=== PATIENT | female | born 2000 | race Caucasian/White ===

== ENCOUNTER 2022-05-31 09:42 | Outpatient (CLI) | payer OTHER, SELFPAY ==
--- NOTE | ~2022-05-31 | XR_ITS ---
EXAMINATION: XR fl inj shoulder RT - MR/CT DATE: 05/31/2022 11:43 INDICATION: Right shoulder pain TECHNIQUE: A time-out was performed to verify the patient's name, date of , and procedure to b e performed. The procedure including the risks, benefits, and alternatives was discussed with the pat ient. Risks discussed included bleeding and infection. The patient understood the risks and agreed to proceed. The skin overlying the rotator cuff interval of the right glenohumeral joint was prepped a nd draped in usual sterile fashion. Anesthetic was administered with 1% lidocaine subcutaneously. A 22 G needle was advanced under fluoroscopic guidance into the joint. Injection of 1 mL of Omnipaque 240 confirmed intra-articular position of the needle. Subsequently, injectate consisting of 12 mL o f 4:1:1 mixture of sterile saline:Omnipaque 350:1% lidocaine mixed 200:1 with 529 mg/mL Multihance ga dolinium contrast was injected with intra-articular administration confirmed with intermittent fluoro scopy. The needle was removed and the entry site was cleaned and dressed. There were no immediate co mplications. Fluoroscopy exposure time was 0.3 minutes. The total number of images was 67. FINDINGS: Real-time fluoroscopy demonstrates the needle in the right glenohumeral joint. Patient's pa in prior to procedure:10/14. Patient's pain following the procedure: 10/14. IMPRESSION: 1. Successful right glenohumeral joint injection of dilute gadolinium contrast mixture for supplement MRI arthrogram which will be dictated separately. Reviewed, dictated and finalized at location A.
--- NOTE | ~2022-05-31 | MR_ITS ---
EXAMINATION: MR shoulder RT w con DATE: 05/31/2022 12:01 INDICATION: Right shoulder pain TECHNIQUE: Magnetic resonance imaging (MRI) of the right shoulder was performed following intra-giovanni cular gadolinium contrast injection and without intravenous contrast. Details of the glenohumeral stephanie nt injection have been dictated separately. Sequences included axial T2-weighted FS FSE, axial T1-we ighted FS FSE, coronal oblique T1-weighted FS FSE, coronal oblique T2-weighted FSE, sagittal T2-weigh roman FS FSE, sagittal T1-weighted FSE, and ABER (abduction external rotation) T1-weighted FS FSE. COMPARISON: None. FINDINGS: Coracoacromial arch: The acromion undersurface is curved in morphology (type II). The coracoacromial ligament is normal. A cromioclavicular joint is normal. Rotator cuff: Mild supraspinatus tendinopathy without tear. The infraspinatus, teres minor and subscapularis tendon s are normal. Normal rotator cuff muscle bulk and signal. Biceps tendon, glenoid labrum and glenohumeral cartilage: Long head of the biceps tendon is intact. Glenoid labrum is normal. Glenohumeral cartilage is normal. Bones and other: Normal marrow signal with no edema, fracture or abnormal marrow replacing process. Small amount of f luid without contrast enhancement in the subacromial/subdeltoid bursa consistent with mild bursitis. IMPRESSION: 1. Mild supraspinatus tendinopathy without tear. 2. Mild subacromial/subdeltoid bursitis. Reviewed, dictated and finalized at location A.
== END 2022-05-31 09:43 | disposition home or self-care (01) ==
PROVIDERS: PCP Family Medicine; Visit Provider Orthopaedic Surgery
DX: M75.51 Bursitis of right shoulder (principal)
CPT/HCPCS: 23350; 73222; 77002; A9577; Q9967

== ENCOUNTER 2025-05-13 14:00 | Outpatient (RCR) | payer OTHER, SELFPAY ==
--- NOTE | 2025-02-28 12:53 | OPREHPOC ---
Outpatient Therapy Plan of Care This is a Multidisciplinary Plan of Care that may contain components documented by all disciplines (PT, OT, and ST.) PT Problem 1 PT Problem #1 Knowledge Deficit PT Goal 1 Goal / Goal Update [place] with HEP Target Visit 4 PT Problem 2 PT Problem #2 Impaired Range of Motion PT Goal 1 Goal / Goal Update 1. Improve R ankle dorsiflexion ROM to 15 degrees to improve terminal stance of gait Target Visit 8 PT Goal 2 Goal / Goal Update 1. Improve mandibular opening to 50 mm to improve speech and food consumption 2. Improve mandibular lateral glide to 20 mm to improve functional bicondylar jaw motion for chewing 3. Improve cervical rotation ROM to 60 degrees amanda 4. Improve cervical extension to 40 degrees pain free Target Visit 8 PT Problem 3 PT Problem #3 Impaired Strength PT Goal 1 Goal / Goal Update 1. Improve gross right ankle strength to 5/5 to improve stability for balance and functional activity Target Visit 8
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
--- NOTE | 2025-03-19 10:29 | PCSTNOTE ---
Patient did not show up for scheduled appointment this date.
--- NOTE | 2025-03-26 10:35 | OPREHPOC ---
Outpatient Therapy Plan of Care This is a Multidisciplinary Plan of Care that may contain components documented by all disciplines (PT, OT, and ST.) PT Problem 1 PT Problem #1 Knowledge Deficit PT Goal 1 Goal / Goal Update [place] with HEP Target Visit 4 PT Problem 2 PT Problem #2 Impaired Range of Motion PT Goal 1 Goal / Goal Update 1. Improve R ankle dorsiflexion ROM to 15 degrees to improve terminal stance of gait Target Visit 8 PT Goal 2 Goal / Goal Update 1. Improve mandibular opening to 50 mm to improve speech and food consumption 2. Improve mandibular lateral glide to 20 mm to improve functional bicondylar jaw motion for chewing 3. Improve cervical rotation ROM to 60 degrees amadna 4. Improve cervical extension to 40 degrees pain free Target Visit 8 PT Problem 3 PT Problem #3 Impaired Strength PT Goal 1 Goal / Goal Update 1. Improve gross right ankle strength to 5/5 to improve stability for balance and functional activity Target Visit [address] Problem #[address] Goal 1 Goal / Goal Update The patient will participate in home programming to improve carry over/generalization of skills to the home environment. Target Visit [address] Problem #[address] Goal 1 Goal / Goal Update Intelligibility: 1. The patient will complete oral motor ROM exercises for lingual/labial ROM 85% minimal cues. 2. The patient will produced fricatives in single word/phrases with 85% minimal cues 3. The patient will produce sentences 90% intelligible without cues 4. The patient will produce intelligible speech in conversation exchanges 5-10 with 905 intelligibility no cues. 5. The patient will complete a HEP with 905 compliance. Target Visit 10
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
--- NOTE | 2025-04-01 09:22 | OPREHPOC ---
Outpatient Therapy Plan of Care This is a Multidisciplinary Plan of Care that may contain components documented by all disciplines (PT, OT, and ST.) PT Problem 1 PT Problem #1 Knowledge Deficit PT Goal 1 Goal / Goal Update [place] with HEP Target Visit 4 Progress Met PT Problem 2 PT Problem #2 Impaired Range of Motion PT Goal 1 Goal / Goal Update 1. Improve R ankle dorsiflexion ROM to 15 degrees to improve terminal stance of gait Target Visit 8 Progress Met PT Goal 2 Goal / Goal Update 1. Improve mandibular opening to 50 mm to improve speech and food consumption 2. Improve mandibular lateral glide to 20 mm to improve functional bicondylar jaw motion for chewing 3. Improve cervical rotation ROM to 60 degrees amanda 4. Improve cervical extension to 40 degrees pain free 04/01/25: Met cervical ROM goals. Still lacking TMJ mobility goals Target Visit 16 Progress Partially Met PT Problem 3 PT Problem #3 Impaired Strength PT Goal 1 Goal / Goal Update 1. Improve gross right ankle strength to 5/5 to improve stability for balance and functional activity 04/01/25: Gastroc weakness still noted Target Visit [address] Problem 1 ST Problem #[address] Goal 1 Goal / Goal Update The patient will participate in home programming to improve carry over/generalization of skills to the home environment. Target Visit [address] Problem #[address] Goal 1 Goal / Goal Update Intelligibility: 1. The patient will complete oral motor ROM exercises for lingual/labial ROM 85% minimal cues. 2. The patient will produced fricatives in single word/phrases with 85% minimal cues 3. The patient will produce sentences 90% intelligible without cues 4. The patient will produce intelligible speech in conversation exchanges 5-10 with 905 intelligibility no cues. 5. The patient will complete a HEP with 905 compliance. Target Visit 10
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
--- NOTE | 2025-04-29 15:02 | OPREHPOC ---
Outpatient Therapy Plan of Care This is a Multidisciplinary Plan of Care that may contain components documented by all disciplines (PT, OT, and ST.) PT Problem 1 PT Problem #1 Knowledge Deficit PT Goal 1 Goal / Goal Update [place] with HEP Target Visit 4 Progress Met PT Problem 2 PT Problem #2 Impaired Range of Motion PT Goal 1 Goal / Goal Update 1. Improve R ankle dorsiflexion ROM to 15 degrees to improve terminal stance of gait Target Visit 8 Progress Met PT Goal 2 Goal / Goal Update 1. Improve mandibular opening to 50 mm to improve speech and food consumption 2. Improve mandibular lateral glide to 20 mm to improve functional bicondylar jaw motion for chewing 3. Improve cervical rotation ROM to 60 degrees amanda 4. Improve cervical extension to 40 degrees pain free 04/29/25: Met cervical ROM goals. Still lacking TMJ mobility goals Target Visit 24 Progress Partially Met PT Problem 3 PT Problem #3 Impaired Strength PT Goal 1 Goal / Goal Update 1. Improve gross right ankle strength to 5/5 to improve stability for balance and functional activity 04/29/25: Gastroc weakness still noted. Significantly improved Target Visit 24 Progress Partially Met PT Goal 2 Goal / Goal Update Improve amanda hip strength to 4+/5 to improve pelvic stability and LE control in dynamic activity Target Visit [address] Problem #[address] Goal 1 Goal / Goal Update The patient will participate in home programming to improve carry over/generalization of skills to the home environment. 04/21 Update: Patietn given HEP utilizing outside treatment. Target Visit [address] Problem 2 ST Problem #[address] Goal 1 Goal / Goal Update Intelligibility: 1. The patient will complete oral motor ROM exercises for lingual/labial ROM 85% minimal cues. 2. The patient will produced fricatives in single word/phrases with 85% minimal cues 3. The patient will produce sentences 90% intelligible without cues 4. The patient will produce intelligible speech in conversation exchanges 5-10 with 905 intelligibility no cues. 04/21/25 Update: Patient had surgery 04/09/25 feels managing speech at this time effectively as able till dental implants to be completed in June. Therapy discharge requested without additional follow-up. Goals set at initial evaluation and treatment. No additional treatments completed. Goals not met. 5. The patient will complete a HEP with 905 compliance. Target Visit 10
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
== END 2025-05-29 23:59 | disposition home or self-care (01) ==
LOC: ANHGOSHPT 14:00
PROVIDERS: PCP Family Medicine
DX: M26.609 Unspecified temporomandibular joint disorder, unspecified side (principal); M25.571 Pain in right ankle and joints of right foot; W34.00XA Accidental discharge from unspecified firearms or gun, initial encounter
CPT/HCPCS: 92507; 92523; 97110; 97112; 97116; 97140; 97161; 97530